=== PATIENT | male | born 1955 | race Caucasian/White ===

== ENCOUNTER → 2021-08-31 08:57 | Outpatient (CLI) | payer OTHER, SELFPAY ==
--- NOTE | ~2021-08-31 | US_ITS ---
EXAMINATION: US aorta [facility] DATE: 08/31/2021 09:11 INDICATION: Abdominal aortic aneurysm screening, prior smoker TECHNIQUE: Grayscale, color Doppler, and pulsed Doppler images of the aorta and common iliac arteries were obtained. COMPARISON: None. FINDINGS: Maximum vascular dimensions are as follows: Proximal aorta: 1.9 cm Mid aorta: 1.6 cm Distal aorta: 1.3 cm Right common iliac artery: 1.0 cm Left common iliac artery: 0.8 cm There is no evidence of abdominal aortic aneurysm. IMPRESSION: 1. No evidence of abdominal aortic aneurysm. Reviewed, dictated and finalized at location B.
== END ==
PROVIDERS: PCP Student in an Organized Health Care Education/Training Program; Visit Provider Student in an Organized Health Care Education/Training Program
DX: Z13.6 Encounter for screening for cardiovascular disorders (principal)
CPT/HCPCS: 76706

== ENCOUNTER 2025-01-14 00:18 | Day surgery (SDC) | payer OTHER, SELFPAY ==
[2025-01-02 13:26] VITALS: BMI 25.7
--- OUTSIDE RECORDS SUMMARY | 2025-01-14 00:22 | XMS_ITS | Clinical Summary ---
Author Organization [facility] Address [address] [place] [id number] Care Team Providers Care Purification Operator Name Role Phone Pranay Brown Primary Care Provider + Allergies Active Allergy Reactions Criticality Noted Date Comments Penicillins Anaphylaxis High 08/18/2021 Medications rosuvastatin (CRESTOR) 5 MG tabletIndications:H yperlipidemia, unspecified hyperlipidemia type Take 1 tablet (5 mg total) by mouth nightly at bedtime. 90 tablet 3 4 Active Active Problems Problem Noted Date Diagnosed Date Hyperlipidemia, unspecified hyperlipidemia type 03/01/2024 Resolved Problems Problem Noted Date Diagnosed Date Resolved Date COVID-19 vaccine series completed 09/30/2021 03/01/2024 Encounters Date Type Department Care Team Description 12/17/2024 Patient Outreach [facility] Family [facility] Internal Medicine [address] [id number] Susan Patricio, [facility] Quality Gap Closure from Last 3 Months Immunizations Name Administration Dates Next Due Fluzone High Dose (IIV, trivalent, 0.5mL) 2023 Fluzone High Dose - >Age 65 (Prefilled Syringe) 09/02/2023,09/01/2022,08/18/2021 Influenza Adult (Generic) 09/02/2023,09/01/2022 PFIZER COVID-19 (12+) MRNA, LNP-S, PF, LAURA-SUCROSE, 30 MCG/0.3 ML (COMIRNATY) 08/16/2024,09/12/2023 PFIZER COVID-19 (OVALLE CAP), MRNA, LNP-S, PF, 30 MCG/0.3 ML LAURA-SUCROSE, IM 04/13/2022 PFIZER COVID-19 (ORIGINAL FO RMULATION, PURPLE CAP) mRNA, LNP-S, PF, 30 MCG/0.3 ML DOSE 08/28/2021 PFIZER COVID-19 BIVALENT (12 +) mRNA, LNP-S, PF, 30 MCG/0.3 ML DOSE 09/01/2022 Pneumococcal (Pneumovax 23) 09/01/2022 Pneumococcal (Prevnar 13) 08/18/2021 Family History Medical History Relation Comments Cancer Brother Pancreatic Cancer Maternal Grandmother Cancer Mother Breast and Thyro id Relation Status Comments Brother Maternal Grandmother Mother Social History Tobacco Use Types Packs/Day Years Used Date Smoking Tobacco: Former Cigarettes 0.5 35 1 10/31/1982 - 08/31/2018 Passive Smoke Exposure: Never Smokeless Tobacco: Never Tobacco Cessation:Counseling Given: Not Answered Comments:Not a smoker Alcohol Use Standard Drinks/Week Comments Not Currently 0 (1 standard drink = 0.6 oz pur e alcohol) PHQ-2 Answer Date Recorded Patient Health Questionnaire-2 Score 0 03/01/2024 Sex and Gender Information Value Date Recorded Sex Assigned at Not on file Legal Sex Male 12:56 PM CDT Gender Identity Not on file Sexual Orientation Not on file Occupation Industry Job Start Date Job End Date Not on file Not on file Not on file Not on file Last Filed Vital Signs Vital Sign Reading Time Taken Comments Blood Pressure 108/68 03/01/2024 7:55 AM CDT Pulse 86 03/01/2024 7:55 AM CDT Temperature 36.8 C (98.2 F) 03/01/2024 7:55 AM CDT Respiratory Rate 16 03/01/2024 7:55 AM CDT Oxygen Saturation 98% 03/01/2024 7:55 AM CDT Inhaled Oxygen Concentration - - Weight 89.4 kg (197 lb 3.2 oz) 03/01/2024 7:55 A M CDT Height 182.9 cm (6') 03/01/2024 7:55 AM CDT Body Mass Index 26.75 03/01/2024 7:55 AM CDT Plan of Treatment Health Maintenance Due Date Last Done Comments Annual Medicare Wellness Visit 02/10/2020 PHQ-2 (Physician [place]) 10/31/2024 03/01/2024 DTaP, Tdap and Td Vaccines (1 - Tdap) 03/01/2025 Postponed from 1974 (No Insurance Coverage) Zoster Vaccines (1 of 2) 03/01/2025 Pos tponed from 2005 (Patient Refused) Colorectal Cancer Screening FIT-DNA (3 Years) 09/12/2027 09/12/2024, 09/12/2024, 09/07/2021, Additional history exists RSV Immunization or 60+ Years (1 - 1-dose 75+ series) 2030 AAA SCREENING 09/08/2043 Postponed from 02/10/2020 (Per Provider Recommendation) Hepatitis C Completed 08/28/2021 Pneumococcal Vaccine: 65+ Years Completed 09/01/2022, 08/18/2021 COVID-19 Vaccine Completed 08/16/2024, , 09/01/2022, Additional history exists Influenza Adult Completed 08/16/2024, 12/2022, 09/02/2023, Additional history exists Meningococcal B Vaccine Aged Out No l onger eligible based on patient's age to complete this topic Meningococcal Vaccine Aged Out No dereck justin eligible based on patient's age to complete this topic RSV Immunizations Under 20 Months Aged Out No longer eligible based on patient's age to complete this topic Procedures Procedure Name Priority Date/Time Associated Diagnosis Comments COLOGUARD ([employer] SCIENCE) Routine 09/12/2024 9:15 AM ZIPPER MEASURER Screening for malignant neoplasm of colon HEPATITIS C ANTIBODY Routine 08/28/2021 7:33 AM CDT Need for hepatitis C screening test Encounter for preventative adult health care examination from Last 3 Months or Most Recently Relevant to Health Maintenance Results * (ABNORMAL) COLOGUARD (EXACT SCIENCE) (09/12/2024 9:15 AM ZIPPER MEASURER) COLOGUARD RESULT Positive( A) Negative BAC ON TRAC (CLIA #:[id number]) Comment: POSITIVE TEST RESULT. A positive Cologuard result should be followed with a colonoscopy or visual examination of the colon. The normal value (reference range) for this assay is negative. TEST DESCRIPTION: Composite algorithmic analysis of stool DNA-biomarkers with hemoglobin immunoassay. Quantitative values of individual biomarkers are not reportable and are not associated with individual biomarker result reference ranges. Cologuard is intended for colorectal cancer screening of adults of either sex, 45 years or older, who are at average-risk for colorectal cancer (CRC). Cologuard has been approved for use by the U.S. FDA. The performance of Cologuard was established in a cross sectional study of average-risk adults aged 50-84. Cologuard performance in patients ages 45 to 49 years was estimated by sub-group analysis of near-age groups. Colonoscopies performed for a positive result may find as the most clinically significant lesion: colorectal cancer [4.0%], advanced adenoma (including sessile serrated polyps greater than or equal to 1cm diameter) [20%] or non- advanced adenoma [31%]; or no colorectal neoplasia [45%]. These estimates are derived from a prospective cross-sectional screening study of 10,000 individuals at average risk for colorectal cancer who were screened with both Cologuard and colonoscopy. (Michael Sampson al, N Engl J Med 2014;370(14):1291-6999.) Cologuard may produce a false negative or false positive result (no colorectal cancer or precancerous polyp present at colonoscopy follow up). A negative Cologuard test result does not guarantee the absence of CRC or advanced adenoma (pre-cancer). The current Cologuard screening interval is every 3 years. ([place] Cancer Society and U.S. Multi-Society Task Force). Cologuard performance data in a 10,000 patient pivotal study using colonoscopy as the reference method can be accessed at the following location: [email or web address]/results. Additional description of the Cologuard test process, warnings and precautions can be found at www.ticketscriptrd.com. STOOL STOOL SPECIMEN / Unknown 09/12/2024 9:15 AM ZIPPER MEASURER 09/14/2024 12:45 PM ZIPPER MEASURER us Pranay Brown DO BODY FLUIDS AND STOOLS O RDERABLES Final Result [facility] ([facility]) [address] [place] [address], [facility] (CLIA #:[id number]) [address] [place] [address] * HEPATITIS C ANTIBODY (08/28/2021 7:33 AM CDT) HEPATITIS C AB NON-REACTI VE NON-REACT KP 08/28/2021 7:28 PM CDT [facility] Comment: ANTIBODIES TO HCV NOT DETECTED. DOES NOT EXCLUDE THE POSSIBILITY OF EXPOSURE TO HCV. 08/28/2021 7:33 AM CDT Pranay Brown DO LABORATORY Final Re sult [facility] [address] [place] [address], [id number] from Last 3 Months or Most Recently Relevant to Health Maintenance Insurance [employer] Care Teams Purification Operator Relationship Specialty Start Date End Date Pranay Brown DO [address] [place] [id number] PCP - General FAMILY PRACTICE 08/18/21
[2025-01-14 08:51] VITALS: BP 120/95; PULSE 98; RESP 20; TEMP 36.7; O2SAT 97
[2025-01-14] MEDS: LACTATED RINGERS 1,000 ML 150 ML IV CONT (09:02)
--- NOTE | 2025-01-14 09:41 | P.PNAN_ITS ---
Anes - Initial Pre Proc Eval Procedure: Operation Date: 01/14/25 10:00 Proposed Procedures p Colonoscopy - Nasim Rios MD Date/Time: 01/14/25 09:41 Surgeon: Nasim Rios MD Pre Op Diagnosis: other fecal abnormalites Patient Data Age: 69 Gender: M Height: 1.83 m Weight: 89.3 kg Last Vital Signs Temp 36.7 C 01/14/25 08:51 Pulse 98 01/14/25 08:51 Resp 20 01/14/25 08:51 BP 120/95 H 01/14/25 08:51 Pulse Ox 97 01/14/25 08:51 O2 Del Method Room Air 01/14/25 08:51 Allergies Allergy/AdvReac Type Severity Reaction Status Date / Time Penicillins Allergy Severe anaphylatic Verified 01/14/25 08:50 Home Medications ?Medication ?Instructions ?Recorded ?Confirmed ?Type multivitamin with minerals-folic 2 tablet PO DAILY 01/02/25 01/14/25 History acid 0.4 mg tablet rosuvastatin 5 mg tablet 5 mg PO HS 01/02/25 01/14/25 History Patient hx anesthesia problems: none Family hx anesthesia problems: none Results Review: All pre-operative results and documents have been reviewed as part of the pre- operative evaluation. [facility] Past Medical History Medical History (Updated 01/14/25 @ 09:41 by Rodo Basurto MD) Hyperlipidemia Social History Social History Smoking packs per day: 0.5 Smoking cigarettes per day: 10.0 Years smoked: 40 Smoking pack-years: 20.00 Smoking status: Former smoker Alcohol intake: never Substance use: never Substance use type: does not use Living arrangements: alone Spiritual care concerns: No Anes - Eval Final PreProcedure Day of Procedure 01/14/25 09:41 Patient weight: overweight Heart: regular rate and rhythm Lungs: clear to auscultation Airway: Mallampati scale class II Neurological: alert and oriented Last oral intake: >/= 8 hours ASA classification: II Emergent: no Anesthetic plan: proceed Anesthesia type and monitoring: general GIVS and standard monitoring Results Review: All pre-operative results and documents have been reviewed as part of the pre- operative evaluation. Informed Consent: The patient's anesthetic plan and its attendant risks and benefits were discussed with the patient/family/POA. Questions were solicited and answers provided to the satisfaction of the patient/family/POA.
--- NOTE | 2025-01-14 09:47 | PM.HPGS ---
History of Present Illness History of Present Illness Consent: Risks, benefits, and alternatives have been discussed and questions answered. Patient agrees to proceed with procedure. Chief complaint: other fecal abnormalites Narrative: Jeramie Watkins Sr. is a 69 year old male here for first colonoscopy, + cologuard Review of Systems Review of Systems: All systems reviewed & are unremarkable except as noted in HPI and below PMFSH Past Medical History Medical History (Updated 01/14/25 @ 09:48 by Nasim Rios MD) Positive colorectal cancer screening using Cologuard test Hyperlipidemia Social History Social History Smoking packs per day: 0.5 Smoking cigarettes per day: 10.0 Years smoked: 40 Smoking pack-years: 20.00 Smoking status: Former smoker Alcohol intake: never Substance use: never Substance use type: does not use Living arrangements: alone Spiritual care concerns: No Meds Home Medications and Allergies Home Medications ?Medication ?Instructions ?Recorded ?Confirmed ?Type multivitamin with minerals-folic 2 tablet PO DAILY 01/02/25 01/14/25 History acid 0.4 mg tablet rosuvastatin 5 mg tablet 5 mg PO HS 01/02/25 01/14/25 History Allergies Allergy/AdvReac Type Severity Reaction Status Date / Time Penicillins Allergy Severe anaphylatic Verified 01/14/25 08:50 Vital Signs Vital Signs - 24 hr 01/14/25 08:51 Temperature 98.1 F Pulse Rate 98 Respiratory Rate 20 Blood Pressure 120/95 H Pulse Oximetry 97 Oxygen Delivery Room Air Exam Const: General: comfortable and no acute distress HENMT: Face/Nose/Sinus: Normal nares present Eyes: General: appearance normal, both eyes and all related structures Neck: Neck: no JVD Resp: Auscultation: clear to auscultation bilaterally Cardio: Rate: regular rate Rhythm: regular rhythm GI: Inspection: non-distended GI Palp: Yes Soft to palpation Skin: General skin exam: normal color Neuro: General: gait normal Speech: normal speech Extrem: General: normal to inspection Psych: Mental Status: mental status grossly normal Assessment and Plan Assessment and plan (1) Positive colorectal cancer screening using Cologuard test: Code(s): R19.5 - Other fecal abnormalities Status: Acute Assessment and Plan: colonoscopy
[2025-01-14 10:14] VITALS: BP 111/76; PULSE 94; RESP 20; O2SAT 97
[2025-01-14 10:24] VITALS: BP 114/74; PULSE 92; RESP 18; O2SAT 98
[2025-01-14 10:34] VITALS: BP 111/77; PULSE 89; RESP 18; O2SAT 98
== END 2025-01-14 10:44 | disposition home or self-care (01) ==
PROVIDERS: PCP Student in an Organized Health Care Education/Training Program; Visit Provider Internal Medicine Gastroenterology
PROC: 0DJD8ZZ Inspection of Lower Intestinal Tract, Via Natural or Artificial Opening Endoscopic (ICD-10-PCS; CPT 45378; principal; 2025-01-14 10:00)
DX: D12.2 Benign neoplasm of ascending colon (principal); D12.4 Benign neoplasm of descending colon; K63.5 Polyp of colon; K64.8 Other hemorrhoids; E78.5 Hyperlipidemia, unspecified; Z87.891 Personal history of nicotine dependence
CPT/HCPCS: 45385; 88305; J2003; J2704; J7120